=== PATIENT | female | born 1990 | race Two or more races ===

== ENCOUNTER 2024-05-07 09:55 | Emergency (ER) | payer MEDICAID, SELFPAY ==
[2024-05-07 10:40] VITALS: BP 150/93; PULSE 103; RESP 18; TEMP 36.6; O2SAT 99; BMI 33.7
--- NOTE | 2024-05-07 10:53 | PD.EDRME ---
Rapid Medical Screening Exam RME Arrival date/time: 05/07/24 09:55 This is a 34-year-old female presents to the emergency department with complaints of acute headache, generalized body aches. Reports uncontrolled diabetes at this time, + nausea vomiting. I have greeted and performed a focused initial assessment of this patient. Initial appropriate labs ordered at this time. A comprehensive ED assessment and evaluation of the patient and analysis of all test and completion of medical decision making process will be conducted by additional ED provider. Chief Complaint: Headache Time Seen by Provider: 05/07/24 10:13 Vital signs: Vital Signs Temperature 97.9 F 05/07/24 10:40 Pulse Rate 103 H 05/07/24 10:40 Respiratory Rate 18 05/07/24 10:40 Blood Pressure 150/93 H 05/07/24 10:40 Pulse Oximetry (%) 99 05/07/24 10:40 Oxygen Delivery Method Room Air 05/07/24 10:40
[2024-05-07] MEDS: ONDANSETRON ODT 4 MG TABRAP PO (11:13)
[2024-05-07 11:25] LABS: Collection Type, Urine Clean Catch
[2024-05-07 11:29] LABS: Basophils % (Auto) 0 % (0-2.5); Eosinophils # (Auto) 0.1 Thou/mm3 (0.0-0.5); Eosinophils % (Auto) 1 % (0-10); Hematocrit 43.6 % (36.0-46.0); Hemoglobin 15.9 g/dL (12.0-16.0); Immature Granulocytes % (Auto) 1 % (0-0); Immature Granulocytes Auto 0.05 Thou/mm3 (0.00-0.00); Lymphocytes % (Auto) 19 % (10-50); Mean Corpuscular HGB Conc 36.5 g/dl (31.0-37.0); Mean Corpuscular Hemoglobin 30.1 pg (25.0-35.0); Mean Corpuscular Volume 82 fL (80-100); Monocytes # (Auto) 0.4 Thou/mm3 (0.0-0.8); Monocytes % (Auto) 4 % (0-12); Neutrophils # (Auto) 7.8 Thou/mm3 (1.8-7.7); Neutrophils % (Auto) 75 % (37-80); Nucleated Red Blood Cell % 0 /100 WBC (0); Platelet Count 336 Thou/mm3 (140-440); RDW Standard Deviation 34.3 fL (36.4-46.3); Red Blood Count 5.29 Miln/mm3 (4.00-5.20); White Blood Count 10.4 Thou/mm3 (3.6-11.0)
[2024-05-07 11:38] LABS: Bacteria,Urine Rare; Bilirubin,Urine Negative (Negative); Blood,Urine Negative (Negative); Clarity,Urine Clear (Clear/Hazy); Color,Urine Lt-Yellow (Lt Yel-Yel); Glucose, Urine 4+ (Negative); HCG Qualitative,Urine Negative; Ketones,Urine Negative (Negative); Leukocyte Esterase,Urine Positive (Negative); Nitrite,Urine Positive (Negative); Protein,Urine Negative (Neg - Trace); RBC,Urine 2 /hpf (0-3); Specific Gravity,Urine 1.026 (1.001-1.035); Squamous Epithelial Cell,Urine 2 /hpf (0-5); Urobilinogen,Urine Negative mg/dL (0.0-1.0); WBC,Urine 11 /hpf (0-5)
[2024-05-07 11:42] LABS: Glucose Estimated Average 355 mg/dL (80-131); Hemoglobin A1C > 14.0 % Hgb (4.8-6.0)
[2024-05-07 11:51] LABS: Alanine Aminotransferase 22 U/L (10-49); Albumin, Serum 4.5 gm/dL (3.5-5.0); Albumin/Globulin Ratio 1.7 (1.2-2.2); Alkaline Phosphatase 79 U/L (46-116); Anion Gap 9 (7-16); Aspartate Amino Transferase 13 U/L (0-34); BUN/Creatinine Ratio 13 Ratio (12-20); Bilirubin,Total 0.5 mg/dL (0.3-1.2); Blood Urea Nitrogen 10 mg/dL (9-23); Calcium 9.7 mg/dL (8.3-10.6); Calcium (Corrected) 9.7 mg/dL (8.5-10.1); Carbon Dioxide 23.2 mMol/L (20.0-31.0); Chloride 103 mMol/L (98-107); Creatinine (Component) 0.8 mg/dL (0.6-1.3); Estimated Creatinine Clearance 128.5 mL/min (>60); Globulin 2.6 gm/dL (2.3-3.5); Glucose 277 mg/dL (74-106); Lipase 42 U/L (12-53); Osmolality,Calculated 279 (275-295); Potassium 4.5 mMol/L (3.4-5.1); Sodium 135 mMol/L (136-145); Total Protein 7.1 gm/dL (5.7-8.2); eGFR > 60 See Note
[2024-05-07 14:11] VITALS: BP 140/90; PULSE 113; RESP 18; TEMP 36.8; O2SAT 98
--- NOTE | 2024-05-07 14:19 | PD.EDHA ---
ED Headache RME/HPI General Chief Complaint: Headache Stated Complaint: MIGRAINES, VOMITING Time Seen by Provider: 05/07/24 10:13 Arrival date/time: 05/07/24 09:55 RME / HPI RME / HPI Narrative: 34-year-old female presents to the emergency department with complaints of acute headache, generalized body aches. Reports uncontrolled diabetes at this time, + nausea vomiting. Severity of symptoms moderate. Patient denies any fever. Denies any other complaints. Denies any head trauma. No medication was taken prior to arrival. Related Data Home Medications ?Medication ?Instructions ?Recorded ?Confirmed dulaglutide 0.75 mg/0.5 mL 1 ea subcut QWEEK 08/17/21 08/20/21 subcutaneous pen injector (Trulicity) metformin 1,000 mg tablet 1,000 mg PO BID 08/17/21 08/20/21 atorvastatin 20 mg tablet 20 mg PO QPM 08/21/21 08/21/21 gabapentin 300 mg tablet 300 mg PO BID 08/21/21 08/21/21 insulin lispro 100 unit/mL 10 - 15 unit subcut TID 08/21/21 08/21/21 subcutaneous pen (Humalog KwikPen (U-100) Insulin) Previous Rx's ?Medication ?Instructions ?Recorded ibuprofen 800 mg tablet 800 mg PO TID PRN pain #30 tabs 01/23/23 tizanidine 4 mg capsule 4 mg PO BID PRN muscle spasticity 01/23/23 #14 caps ibuprofen 800 mg tablet 800 mg PO TID PRN pain #30 tabs 03/15/23 cephalexin 500 mg capsule 500 mg PO QID #28 caps 05/10/23 cephalexin 500 mg tablet 500 mg PO TID #21 tabs 05/11/23 cefuroxime axetil 500 mg tablet 500 mg PO BID #14 tabs 05/07/24 rizatriptan 10 mg disintegrating See Rx Instructions PO .COMPLEX 05/07/24 tablet (Maxalt-RV TECHNICIAN) PRN migraine headache #20 tabs Allergies Allergy/AdvReac Type Severity Reaction Status Date / Time No Known Allergies Allergy Verified 05/07/24 09:56 Review of Systems Review of Systems Narrative Review of Systems: Review of system reviewed and within normal limits except mentioned in HPI ED Exam Narrative Physical exam: VITAL SIGNS: Reviewed. GENERAL APPEARANCE: Alert and interactive, follows commands, no acute distress, HEAD AND FACE: Non-traumatic. ENT: PERRL, pink conjunctivitis, eyelid no trauma, Mucous membrane moist. NECK: Supple, nontender, no nuchal rigidity. CHEST: No tenderness, no crepitus, no paradoxical movement, no retractions. LUNGS: Clear, well ventilated, symmetric, no rales, no wheezing, no ronchi, no stridor, good breath sounds bilaterally. HEART: Regular rate, regular rhythm, no murmur, no gallops. ABDOMEN: Soft, positive bowel sounds, nondistended, no guarding, nontender, no rebound, no masses, RECTAL: Deferred. GENITAL: Deferred. NEUROLOGICAL: Gross motor function intact sensory function intact, Appropriate for age. MUSCULOSKELETAL: low back nontender, full range of motion. EXTREMITIES: Nontender, full range of motion. SKIN: Color pink, dry, no rash, no lacerations, no abrasions, no contusions. LYMPHATICS: Deferred. Course Quality Measures none Orders Category Date Time Status Bedside COVID-19 Antigen Test NOW Care 05/07/24 10:54 Completed Bedside Influenza A&B Antigen Test NOW Care 05/07/24 10:54 Completed CBC Stat Lab 05/07/24 11:01 Completed Comprehensive Metabolic Panel Stat Lab 05/07/24 11:01 Completed HCG Qualitative,Urine Stat Lab 05/07/24 11:13 Completed Hemoglobin A1C [Glycohemoglobin w (eAG)] Stat Lab 05/07/24 11:01 Completed Lipase Stat Lab 05/07/24 11:01 Completed Urinalysis Stat Lab 05/07/24 11:13 Completed Ketorolac Inj [Toradol Inj] Med 05/07/24 14:16 Discontinued 30 mg IM X1 ONE Ondansetron Odt [Zofran Odt] Med 05/07/24 10:58 Discontinued 4 mg PO X1 ONE Vital Signs Vital signs: Vital Signs Temperature 97.9 F 05/07/24 10:40 Pulse Rate 103 H 05/07/24 10:40 Respiratory Rate 18 05/07/24 10:40 Blood Pressure 150/93 H 05/07/24 10:40 Pulse Oximetry (%) 99 05/07/24 10:40 Oxygen Delivery Method Room Air 05/07/24 10:40 Headache MDM Narrative MDM Narrative:: 34-year-old female presents to the emergency department with complaints of acute headache, generalized body aches. Reports uncontrolled diabetes at this time, + nausea vomiting. Severity of symptoms moderate. Patient denies any fever. Denies any other complaints. Denies any head trauma. No medication was taken prior to arrival. Patient's workup is significant for UTI. The rest of the labs unremarkable. Except for a blood sugar of 277 with no sign of diabetic ketoacidosis. Patient was given Toradol IM with significant improvement headache. She will be sent home on antibiotic for UTI Patient appears nontoxic and hemodynamically stable. Patient discharged home and instructed to follow-up with primary care provider in 24 to 48 hours. Instructed to return to the emergency department immediately if worsening of symptoms Patient data External records reviewed:: None Clinical information provided by:: patient and family Social determinants that could affect healthcare access:: none Patient has the following chronic illnesses:: Diabetes mellitus How is presenting disease/condition affected by chronic disease/condition?: uneffected by Evaluation data The following diagnostics were reviewed and interpreted by me:: lab results Lab and/or radiology exams considered but not ordered:: None Interpretation Summary: See results in [facility] Medications / Prescriptions Medications or Prescriptions considered but not ordered:: None Medication administrations:: Medication Administration History Discontinued Medications Ketorolac Tromethamine (Ketorolac Inj 60 Mg/2 Ml Vial) 30 mg IM X1 ONE Stop: 05/07/24 14:17 Last Admin: 05/07/24 14:23 Dose: 30 mg Documented By: MARIELOS Ondansetron HCl (Ondansetron Odt 4 Mg Tabrap) 4 mg PO X1 ONE; Protocol Stop: 05/07/24 10:59 Last Admin: 05/07/24 11:13 Dose: 4 mg Documented By: EMILY Toradol and Zofran Consultations Consultation(s) initiated? (list below): No Diagnosis Differential diagnosis headache: migraine, headache and other ( Urinary tract infection) Most likely diagnosis given after review of the tests above:: Urinary tract infection, headache Admission Indicated Admission indicated?: not indicated Explain why admission is indicated or not indicated:: Stable Admission Request Was there a request for admission?: No Disposition Plan Disposition Plan: Discharge Discharge Attestation Discharge Attestation: The patient and all family members were given an opportunity to ask questions and understood the discharge instructions. Discharge instructions specifically effects, indications for sooner follow up or return to the emergency department, and the expected course of current diagnosis. Patient condition: Stable Discharge Plan Plan Patient Disposition: HOME (Self Care) Disposition Comment: stable Prescriptions/Referrals Prescriptions/Med Rec: New cefuroxime axetil 500 mg tablet 500 mg PO BID Qty: 14 0RF rizatriptan [Maxalt-RV TECHNICIAN] 10 mg tablet,disintegrating See Rx Instructions .ROUTE .COMPLEX PRN (Reason: migraine headache) Qty: 20 0RF Rx Instructions: take 1 tab at onset of headache; if no relief may repeat 1 tab after at least 2 hrs; max = 3 tabs/24 hr PRN; No Action metformin 1,000 mg Tablet 1,000 mg PO BID Trulicity 0.75 mg/0.5 mL pen injector 1 ea SUBCUT QWEEK Patient Comments: INJECT 1 PEN SUBCUTANEOUSLY ONCE A WEEK atorvastatin 20 mg Tablet 20 mg PO QPM insulin lispro [Humalog KwikPen Insulin] 100 unit/mL Insulin Pen 10 - 15 unit SUBCUT TID Rx Instructions: before meals gabapentin 300 mg Tablet 300 mg PO BID Rx Instructions: for 30 days cephalexin 500 mg capsule 500 mg PO QID Qty: 28 0RF tizanidine 4 mg capsule 4 mg PO BID PRN (Reason: muscle spasticity) Qty: 14 0RF ibuprofen 800 mg tablet 800 mg PO TID PRN (Reason: pain) Qty: 30 0RF ibuprofen 800 mg tablet 800 mg PO TID PRN (Reason: pain) Qty: 30 0RF cephalexin 500 mg tablet 500 mg PO TID Qty: 21 0RF Referrals: Sanket Lucero MD [Primary Care Provider] - In 1 week Problem List Clinical Impression: UTI (urinary tract infection), Headache Patient/Caregiver Discharge Instructions Education Materials: Understanding Urinary Tract ... Additional Instructions: Thank you for the opportunity for serving you today. You are stable for discharged . You are advised to: Follow-up with your PCP in 1 to 2 days Return to ED for worsening of symptoms Increase oral fluids Take medication as prescribed Print Language: Citizen Of [place] Stand Alone Forms: [facility] Award Info., Patient Portal Info Letter
[2024-05-07] MEDS: KETOROLAC INJ 60 MG/2 ML VIAL 30 MG IM (14:23)
== END 2024-05-07 14:27 | disposition home or self-care (01) ==
PROVIDERS: Nurse Practitioner Primary Care; Emergency Provider Emergency Medicine; PCP Family Medicine
DX: N39.0 Urinary tract infection, site not specified (principal); R51.9 Headache, unspecified
CPT/HCPCS: 36415; 80053; 81001; 81025; 83036; 83690; 85025; 87400; 87811; 96372; 99283; J1885; Q0162

== ENCOUNTER 2024-09-25 14:14 | Emergency (ER) | payer MEDICAID, SELFPAY ==
[2024-09-25 14:15] VITALS: BMI 32.8
[2024-09-25 14:33] VITALS: BP 127/80; PULSE 96; RESP 19; TEMP 37; O2SAT 95
--- NOTE | 2024-09-25 14:42 | PD.EDRME ---
Rapid Medical Screening Exam RME Arrival date/time: 09/25/24 14:14 34-year-old female presents to the Emergency Department today for complaints of nausea vomiting and diarrhea Chief Complaint: Abdominal Pain Vital signs: Vital Signs Temperature 98.6 F 09/25/24 14:33 Pulse Rate 96 09/25/24 14:33 Respiratory Rate 19 09/25/24 14:33 Blood Pressure 127/80 09/25/24 14:33 Pulse Oximetry (%) 95 09/25/24 14:33 Oxygen Delivery Method Room Air 09/25/24 14:33
--- NOTE | 2024-09-25 14:53 | XR_ITS ---
Examination: CT abdomen and pelvis without contrast. Coronal 3-D reconstructions. Sagittal 2-D reconstructions. Date and time of exam:September 25, 2024 1604 hours, comparison May 10, 2023 INDICATIONS: Abdominal pain nausea vomiting diarrhea beginning 3 days ago CTDI: vol (mGy): 50.3 DLP: (mGycm): 947 Technique: Axial images of the abdomen have been obtained, 3 mm slice thickness Intravenous contrast material has not been administered. Low dose protocols were performed. One or more of the following dose reduction techniques were used; automated exposure control, adjustment of the mA and/or KV according to patient size, use of iterative reconstruction technique. Findings: Diffuse fatty infiltration throughout the liver Absent gallbladder Spleen is not enlarged No pancreatic mass Normal adrenal glands Perinephric stranding. Moderate renal parenchymal scar formation. No renal or ureteral calculi, no hydronephrosis. No bowel obstruction Normal appendix No diverticulitis Anteverted uterus 3 cm left adnexal cyst Urinary bladder wall thickening up to 4 mm Advanced degenerative disc disease L4-L5 IMPRESSION: Moderate renal parenchymal scar formation Perinephric stranding. No renal or ureteral calculi, no hydronephrosis. Normal appendix 3 cm left adnexal cyst, consider pelvic sonography follow-up Cystitis pattern
[2024-09-25 15:22] LABS: Collection Type, Urine Clean Catch
[2024-09-25 15:25] LABS: Basophils # (Auto) 0.0 Thou/mm3 (0.0-0.2); Basophils % (Auto) 0 % (0-2.5); Eosinophils # (Auto) 0.1 Thou/mm3 (0.0-0.5); Eosinophils % (Auto) 1 % (0-10); Hematocrit 42.0 % (36.0-46.0); Hemoglobin 14.7 g/dL (12.0-16.0); Immature Granulocytes Auto 0.02 Thou/mm3 (0.00-0.00); Lymphocytes # (Auto) 2.3 Thou/mm3 (1.0-4.8); Lymphocytes % (Auto) 24 % (10-50); Mean Corpuscular HGB Conc 35.0 g/dl (31.0-37.0); Mean Corpuscular Hemoglobin 29.9 pg (25.0-35.0); Mean Corpuscular Volume 85 fL (80-100); Monocytes # (Auto) 0.4 Thou/mm3 (0.0-0.8); Monocytes % (Auto) 5 % (0-12); Neutrophils # (Auto) 6.4 Thou/mm3 (1.8-7.7); Neutrophils % (Auto) 69 % (37-80); Nucleated Red Blood Cell # 0.00 Thou/mm3 (0.00-0.00); Nucleated Red Blood Cell % 0 /100 WBC (0); Platelet Count 267 Thou/mm3 (140-440); RDW Standard Deviation 34.8 fL (36.4-46.3); Red Blood Count 4.92 Miln/mm3 (4.00-5.20); White Blood Count 9.2 Thou/mm3 (3.6-11.0)
[2024-09-25 15:31] LABS: Beta Hydroxybutyrate 0.2 mmol/L (<0.6)
[2024-09-25 15:42] LABS: Glucose Estimated Average 355 mg/dL (80-131); Hemoglobin A1C > 14.0 % Hgb (4.8-6.0)
[2024-09-25 15:46] LABS: Alanine Aminotransferase 30 U/L (10-49); Albumin, Serum 3.9 gm/dL (3.5-5.0); Albumin/Globulin Ratio 1.6 (1.2-2.2); Alkaline Phosphatase 73 U/L (46-116); Anion Gap 12 (7-16); Aspartate Amino Transferase 29 U/L (0-34); BUN/Creatinine Ratio 8 Ratio (12-20); Bilirubin,Total 0.3 mg/dL (0.3-1.2); Blood Urea Nitrogen 7 mg/dL (9-23); Calcium 9.1 mg/dL (8.3-10.6); Calcium (Corrected) 9.2 mg/dL (8.5-10.1); Carbon Dioxide 22.5 mMol/L (20.0-31.0); Chloride 107 mMol/L (98-107); Creatinine (Component) 0.9 mg/dL (0.6-1.3); Estimated Creatinine Clearance 116.1 mL/min (>60); Globulin 2.4 gm/dL (2.3-3.5); Glucose 207 mg/dL (74-106); Lipase 32 U/L (12-53); Magnesium 1.4 mg/dL (1.6-2.6); Osmolality,Calculated 285 (275-295); Potassium 3.9 mMol/L (3.4-5.1); Sodium 141 mMol/L (136-145); Total Protein 6.3 gm/dL (5.7-8.2); eGFR > 60 See Note
[2024-09-25 15:53] LABS: Bacteria,Urine 3+; Bilirubin,Urine Negative (Negative); Blood,Urine Trace (Negative); Clarity,Urine Turbid (Clear/Hazy); Color,Urine Lt-Yellow (Lt Yel-Yel); Glucose, Urine 4+ (Negative); Ketones,Urine Negative (Negative); Leukocyte Esterase,Urine Positive (Negative); Nitrite,Urine Negative (Negative); PH,Urine 6.0 (5.0-7.0); Protein,Urine Trace (Neg - Trace); RBC,Urine 3 /hpf (0-3); Specific Gravity,Urine 1.028 (1.001-1.035); Squamous Epithelial Cell,Urine 2 /hpf (0-5); Urobilinogen,Urine Negative mg/dL (0.0-1.0); WBC,Urine 14 /hpf (0-5)
[2024-09-25 15:55] LABS: Culture Indicated,Urine Yes; HCG Qualitative,Urine Negative
[2024-09-25 18:21] VITALS: BP 127/84; PULSE 95; RESP 18; TEMP 36.8; O2SAT 98
--- NOTE | 2024-09-25 18:40 | PD.EDABDPN ---
ED Abdominal Pain RME/HPI General Chief Complaint: Abdominal Pain Stated complaint: CHILLS, N/V/D, ABD PAIN Time seen by provider: 09/25/24 18:08 Arrival date/time: 09/25/24 14:14 RME / HPI RME / HPI narrative: 34-year-old female patient with significant history of diabetes mellitus, came in for evaluation regarding left-sided abdominal pain. This been ongoing for the last 4 days associated with nausea vomiting diarrhea chills headache not feeling well, severity moderate. Patient denies any cough. Patient denies any dysuria denies any fever denies any other complaints no medications taken prior travel. Related Data Home Medications ?Medication ?Instructions ?Recorded ?Confirmed dulaglutide 0.75 mg/0.5 mL 1 ea subcut QWEEK 08/17/21 08/20/21 subcutaneous pen injector (Trulicity) metformin 1,000 mg tablet 1,000 mg PO BID 08/17/21 08/20/21 atorvastatin 20 mg tablet 20 mg PO QPM 08/21/21 08/21/21 gabapentin 300 mg tablet 300 mg PO BID 08/21/21 08/21/21 insulin lispro 100 unit/mL 10 - 15 unit subcut TID 08/21/21 08/21/21 subcutaneous pen (Humalog KwikPen (U-100) Insulin) Previous Rx's ?Medication ?Instructions ?Recorded ibuprofen 800 mg tablet 800 mg PO TID PRN pain #30 tabs 01/23/23 tizanidine 4 mg capsule 4 mg PO BID PRN muscle spasticity 01/23/23 #14 caps ibuprofen 800 mg tablet 800 mg PO TID PRN pain #30 tabs 03/15/23 cephalexin 500 mg capsule 500 mg PO QID #28 caps 05/10/23 cephalexin 500 mg tablet 500 mg PO TID #21 tabs 05/11/23 cefuroxime axetil 500 mg tablet 500 mg PO BID #14 tabs 05/07/24 rizatriptan 10 mg disintegrating See Rx Instructions PO .COMPLEX 05/07/24 tablet (Maxalt-LAN SUPPORT SPECIALIST) PRN migraine headache #20 tabs cefuroxime axetil 500 mg tablet 500 mg PO BID #14 tabs 09/25/24 ibuprofen 800 mg tablet 800 mg PO Q8H PRN pain #20 tabs 09/25/24 ondansetron HCl 4 mg tablet 4 mg PO Q8H PRN nausea and 09/25/24 vomiting 5 days #20 tabs oseltamivir 75 mg capsule (Tamiflu) 75 mg PO BID 5 days #10 caps 09/25/24 Allergies Allergy/AdvReac Type Severity Reaction Status Date / Time No Known Allergies Allergy Verified 09/25/24 14:15 Review of Systems Review of Systems Narrative Review of Systems: Review of system reviewed and within normal limits except mentioned in HPI ED Exam Narrative Physical exam: VITAL SIGNS: Reviewed. GENERAL APPEARANCE: Alert and interactive, follows commands, no acute distress, HEAD AND FACE: Non-traumatic. ENT: PERRL, pink conjunctivitis, eyelid no trauma, Mucous membrane moist. NECK: Supple, nontender, no nuchal rigidity. CHEST: No tenderness, no crepitus, no paradoxical movement, no retractions. LUNGS: Clear, well ventilated, symmetric, no rales, no wheezing, no ronchi, no stridor, good breath sounds bilaterally. HEART: Regular rate, regular rhythm, no murmur, no gallops. ABDOMEN: Soft, positive bowel sounds, nondistended, no guarding, left abdominal tenderness, no rebound, no masses, RECTAL: Deferred. GENITAL: Deferred. NEUROLOGICAL: Gross motor function intact sensory function intact, Appropriate for age. MUSCULOSKELETAL: low back nontender, full range of motion. EXTREMITIES: Nontender, full range of motion. SKIN: Color pink, dry, no rash, no lacerations, no abrasions, no contusions. LYMPHATICS: Deferred. Course Quality Measures none Orders Category Date Time Status Bedside COVID-19 Antigen Test NOW Care 09/25/24 14:42 Active Bedside Influenza A&B Antigen Test NOW Care 09/25/24 14:[address] abdomen pelvis wo con Stat Exams 09/25/24 14:53 Completed A1C [Glycohemoglobin w (eAG)] Stat Lab 09/25/24 15:07 Completed Beta Hydroxybutyrate Stat Lab 09/25/24 15:20 Completed CBC Stat Lab 09/25/24 15:07 Completed Comprehensive Metabolic Panel Stat Lab 09/25/24 15:07 Completed HCG Qualitative,Urine Stat Lab 09/25/24 15:10 Completed Lipase Stat Lab 09/25/24 15:07 Completed Mag [Magnesium] Stat Lab 09/25/24 15:07 Completed UA, C/S IF [Urinalysis, C/S if Indicated] Stat Lab 09/25/24 15:10 Completed Urine Culture Stat Lab 09/25/24 15:10 Received VBG [Venous Blood Gas] Stat Lab 09/25/24 15:07 Ordered Acetaminophen Tab [Tylenol ES Tab] Med 09/25/24 18:39 Once 1,000 mg PO X1 ONE Ibuprofen Tab [Motrin Tab] Med 09/25/24 18:39 Once 800 mg PO X1 ONE Ondansetron Odt [Zofran Odt] Med 09/25/24 18:39 Once 4 mg PO X1 ONE Oseltamivir [Tamiflu] Med 09/25/24 18:39 Once 75 mg PO X1 ONE cephALEXin [Keflex] Med 09/25/24 18:39 Once 500 mg PO X1 ONE Vital Signs Vital signs: Vital Signs Temperature 98.6 F 09/25/24 14:33 Pulse Rate 96 09/25/24 14:33 Respiratory Rate 19 09/25/24 14:33 Blood Pressure 127/80 09/25/24 14:33 Pulse Oximetry (%) 95 09/25/24 14:33 Oxygen Delivery Method Room Air 09/25/24 14:33 Abdominal Pain MDM MDM Narrative MDM Narrative:: 34-year-old female patient with significant history of diabetes mellitus, came in for evaluation regarding left-sided abdominal pain. This been ongoing for the last 4 days associated with nausea vomiting diarrhea chills headache not feeling well, severity moderate. Patient denies any cough. Patient denies any dysuria denies any fever denies any other complaints no medications taken prior travel. Patient tested positive for influenza, urinalysis positive for UTI, duress of the labs unremarkable except for blood sugar of [address] scan of the abdomen and pelvis showed Moderate renal parenchymal scar formation Perinephric stranding. No renal or ureteral calculi, no hydronephrosis. Normal appendix 3 cm left adnexal cyst, consider pelvic sonography follow-up Cystitis pattern Patient was given Tamiflu, Keflex, Motrin Tylenol and Zofran with significant improvement of symptoms. Patient data External records reviewed:: None Clinical information provided by:: patient Social determinants that could affect healthcare access:: none Patient has the following chronic illnesses:: Diabetes mellitus How is presenting disease/condition affected by chronic disease/condition?: caused by Evaluation data The following diagnostics were reviewed and interpreted by me:: lab results and radiology exam(s) Lab and/or radiology exams considered but not ordered:: None Interpretation Summary: See results MDM Medications / Prescriptions Medications or Prescriptions considered but not ordered:: None Medication administrations:: Keflex, Motrin Tylenol Zofran and Tamiflu Consultations Consultation(s) initiated? (list below): No Diagnosis Differential diagnosis abdominal pain: abdominal pain and other (UTI, influenza) Most likely diagnosis given after review of the tests above:: Influenza, UTI, abdominal pain Admission Indicated Admission indicated?: not indicated Admission Request Was there a request for admission?: No Disposition Plan Disposition Plan: Discharge Discharge Attestation Discharge Attestation: The patient and all family members were given an opportunity to ask questions and understood the discharge instructions. Discharge instructions specifically effects, indications for sooner follow up or return to the emergency department, and the expected course of current diagnosis. Patient condition: Stable Discharge Plan Plan Patient Disposition: HOME (Self Care) Discharge Disposition comment: Stable Prescriptions/Referrals Prescriptions/Med Rec: New cefuroxime axetil 500 mg tablet 500 mg PO BID Qty: 14 0RF oseltamivir [Tamiflu] 75 mg capsule 75 mg PO BID 5 Days Qty: 10 0RF ondansetron HCl 4 mg tablet 4 mg PO Q8H PRN (Reason: nausea and vomiting) 5 Days Qty: 20 0RF ibuprofen 800 mg tablet 800 mg PO Q8H PRN (Reason: pain) Qty: 20 0RF No Action metformin 1,000 mg Tablet 1,000 mg PO BID Trulicity 0.75 mg/0.5 mL pen injector 1 ea SUBCUT QWEEK Patient Comments: INJECT 1 PEN SUBCUTANEOUSLY ONCE A WEEK atorvastatin 20 mg Tablet 20 mg PO QPM insulin lispro [Humalog KwikPen Insulin] 100 unit/mL Insulin Pen 10 - 15 unit SUBCUT TID Rx Instructions: before meals gabapentin 300 mg Tablet 300 mg PO BID Rx Instructions: for 30 days cephalexin 500 mg capsule 500 mg PO QID Qty: 28 0RF cefuroxime axetil 500 mg tablet 500 mg PO BID Qty: 14 0RF rizatriptan [Maxalt-LAN SUPPORT SPECIALIST] 10 mg tablet,disintegrating See Rx Instructions .ROUTE .COMPLEX PRN (Reason: migraine headache) Qty: 20 0RF Rx Instructions: take 1 tab at onset of headache; if no relief may repeat 1 tab after at least 2 hrs; max = 3 tabs/24 hr PRN; tizanidine 4 mg capsule 4 mg PO BID PRN (Reason: muscle spasticity) Qty: 14 0RF ibuprofen 800 mg tablet 800 mg PO TID PRN (Reason: pain) Qty: 30 0RF ibuprofen 800 mg tablet 800 mg PO TID PRN (Reason: pain) Qty: 30 0RF cephalexin 500 mg tablet 500 mg PO TID Qty: 21 0RF Referrals: Sanket Lucero MD [Primary Care Provider] - In 1 week Problem List Clinical Impression: UTI (urinary tract infection), Influenza, Ovarian cyst Patient/Caregiver Discharge Instructions Discharge Activity: activity as tolerated Education Materials: ED Influenza (Adult) Additional Instructions: Thank you for the opportunity for serving you today. You are stable for discharged . You are advised to: Follow-up with your PCP in 1 to 2 days Return to ED for worsening of symptoms Increase oral fluids Take medication as prescribed Print Language: [place] Stand Alone Forms: Marisa Award Info., Patient Portal Info Letter
[2024-09-25] MEDS: ONDANSETRON ODT 4 MG TABRAP PO (18:50)
[2024-09-25] MEDS: OSELTAMIVIR 75 MG CAPSULE PO (18:59)
[2024-09-25] MEDS: IBUPROFEN TAB 400 MG TABLET 800 MG PO (19:00)
[2024-09-25] MEDS: ACETAMINOPHEN 500 MG TABLET 1000 MG PO (19:01)
== END 2024-09-25 19:06 | disposition home or self-care (01) ==
PROVIDERS: Nurse Practitioner Primary Care; Emergency Provider Emergency Medicine; PCP Family Medicine
DX: N39.0 Urinary tract infection, site not specified (principal); J11.1 Influenza due to unidentified influenza virus with other respiratory manifestations; N83.202 Unspecified ovarian cyst, left side; E11.9 Type 2 diabetes mellitus without complications; Z79.84 Long term (current) use of oral hypoglycemic drugs; Z79.85 Long-term (current) use of injectable non-insulin antidiabetic drugs; Z79.4 Long term (current) use of insulin
CPT/HCPCS: 36415; 74176; 80053; 81001; 81025; 82010; 82803; 83036; 83690; 83735; 85025; 87077; 87086; 87186; 87400; 87811; 99283; Q0162; A9270

== ENCOUNTER 2024-12-04 17:56 | Emergency (ER) | payer MEDICAID, SELFPAY ==
[2024-12-04 17:58] VITALS: BMI 32.8
[2024-12-04 18:08] VITALS: BP 133/85; PULSE 102; RESP 18; TEMP 37.2; O2SAT 98
--- NOTE | 2024-12-04 18:22 | PD.EDANKLE ---
Lower Extremity Injury RME/HPI General Chief Complaint: General Adult/Misc Complain Stated Complaint: PULLED OFF L BIG TOE X3 DAYS AGO Time Seen by Provider: 12/04/24 18:30 Arrival date/time: 12/04/24 17:56 RME / HPI RME / HPI Narrative: See [facility] for Dr. Florence's HPI Documentation. Related Data Home Medications ?Medication ?Instructions ?Recorded ?Confirmed dulaglutide 0.75 mg/0.5 mL 1 ea subcut QWEEK 08/17/21 08/20/21 subcutaneous pen injector (Trulicity) metformin 1,000 mg tablet 1,000 mg PO BID 08/17/21 08/20/21 atorvastatin 20 mg tablet 20 mg PO QPM 08/21/21 08/21/21 gabapentin 300 mg tablet 300 mg PO BID 08/21/21 08/21/21 insulin lispro 100 unit/mL 10 - 15 unit subcut TID 08/21/21 08/21/21 subcutaneous pen (Humalog KwikPen (U-100) Insulin) Previous Rx's ?Medication ?Instructions ?Recorded ibuprofen 800 mg tablet 800 mg PO TID PRN pain #30 tabs 01/23/23 tizanidine 4 mg capsule 4 mg PO BID PRN muscle spasticity 01/23/23 #14 caps ibuprofen 800 mg tablet 800 mg PO TID PRN pain #30 tabs 03/15/23 cephalexin 500 mg capsule 500 mg PO QID #28 caps 05/10/23 cephalexin 500 mg tablet 500 mg PO TID #21 tabs 05/11/23 cefuroxime axetil 500 mg tablet 500 mg PO BID #14 tabs 05/07/24 rizatriptan 10 mg disintegrating See Rx Instructions PO .COMPLEX 05/07/24 tablet (Maxalt-[employer]) PRN migraine headache #20 tabs cefuroxime axetil 500 mg tablet 500 mg PO BID #14 tabs 09/25/24 ibuprofen 800 mg tablet 800 mg PO Q8H PRN pain #20 tabs 09/25/24 acetaminophen 300 mg-codeine 30 mg 2 tab PO Q8H PRN pain #20 tabs 12/04/24 tablet amoxicillin 875 mg-potassium 1 tab PO BID #20 tabs 12/04/24 clavulanate 125 mg tablet ibuprofen 800 mg tablet 800 mg PO Q8H PRN pain #30 tabs 12/04/24 lidocaine 5 % topical patch 1 patch topical QDAY PRN pain #30 12/04/24 (Lidoderm) ea Allergies Allergy/AdvReac Type Severity Reaction Status Date / Time No Known Allergies Allergy Verified 12/04/24 18:01 Review of Systems Review of Systems Systems Reviewed: All systems reviewed, normal except as documented Past Medical History Past Medical History CARDIAC: Positive Hypercholesterolemia GASTROINTESTINAL: Positive Gall Bladder Disease REPRODUCTIVE: Positive Previous Pregnancies ENDOCRINE: Positive Diabetes Mellitus Type 2 Surgical History SURGICAL: Positive Abdominal Surgery and Section ED Exam Narrative Physical exam: See [facility] for Dr. Florence's Physical Exam Documentation. Course Quality Measures none Orders Category Date Time Status Wound Care [Wound Care] NOW Care 12/04/24 18:42 Active ACETAMINOPHEN w/COD 300-30 [Tylenol w/Cod #3] Med 12/04/24 18:41 Discontinued 2 tab PO X1 ONE Amoxicillin/Pot Clav 875 [Augmentin 875] Med 12/04/24 18:41 Discontinued 1 tab PO X1 ONE Ibuprofen Tab [Motrin Tab] Med 12/04/24 18:41 Discontinued 800 mg PO X1 ONE Vital Signs Vital signs: Vital Signs Temperature 99.0 F 12/04/24 18:08 Pulse Rate 102 H 12/04/24 18:08 Respiratory Rate 18 12/04/24 18:08 Blood Pressure 133/85 H 12/04/24 18:08 Pulse Oximetry (%) 98 12/04/24 18:08 Oxygen Delivery Method Room Air 12/04/24 18:08 Extremity Injury, Lower [facility] Narrative [facility] Narrative:: This section includes all my notes and documentations, including HPI, PE, and ED course. Kameron Florence MD HPI: 34 y/o female with Hx of Type II DM presents with severe pain, redness, and swelling of the left greater toe. Several days ago, she remove the nail herself thinking she had ingrown nails. No fever or chills or malaise. No other complaints. ROS: All negative except as documented in HPI. Physical Exam: General: Alert and oriented. Eyes: Conjunctivae and lids clear. ENT: No nasal congestion. Neck: Supple. Lungs: No respiratory distress. Skin: Warm and dry. Neuro: Alert and oriented X 3. Left Great Toe: Complete nail avulsion noted. Entire toe is remarkable for erythema/edema/calor/tenderness. At this point, diagnoses include: Cellulitis of great toe of left foot Treatment here included: Two Tylenol #3 Augmentin 875 Motrin 800 mg She started to feel better. Recommended outpatient care. Based on my best medical judgment, made decision no further evaluation or treatment indicated at this time. Patient understands and agrees to the discharge instructions customized and printed, see below. Discharge instructions from Dr. Florence:? -- Take Augmentin to kill the germs causing your infection. -- Keep the current dressing intact for 48 hours. -- After 48 hours, change the dressing once daily. -- First remove the dressing gently.? If it does not come off easily, run water through it until it comes off easily. -- Then gently wash with soap and water. -- After completely drying, apply antibiotic ointment and petroleum jelly and new dressing. -- To help the healing process, minimal weightbearing and elevate above the waist for 3 days. -- Ibuprofen 800 mg every 6-8 hours today and tomorrow to decrease inflammation then as needed. Tylenol with codeine for severe pain. You can apply small piece of lidocaine patch for more help with the pain. -- See a private doctor on 12/06/2024 for recheck. Ask for help until you are completely better. -- Seek immediate medical care with fever, spreading redness despite taking Augmentin for 24 hours, or with any concerns. Kameron Florence MD Patient data External records reviewed:: [facility] previous records (Reviewed prior ED records from 09/25/24. Patient was seen for Influenza.) Clinical information provided by:: patient Social determinants that could affect healthcare access:: none Patient has the following chronic illnesses:: Type II DM, Hypercholesterolemia, Gall Bladder Disease How is presenting disease/condition affected by chronic disease/condition?: exacerbated by Evaluation data The following diagnostics were reviewed and interpreted by me:: other (specify) (N/A) Lab and/or radiology exams considered but not ordered:: None Interpretation Summary: N/A Medications / Prescriptions Medications or Prescriptions considered but not ordered:: None Medication administrations:: Medication Administration History Discontinued Medications Acetaminophen/Codeine Phosphate (Acetaminophen W/Cod 300-30 Tablet) 2 tab PO X1 ONE Stop: 12/04/24 18:42 Last Admin: 12/04/24 18:58 Dose: 2 tab Documented By: OA Amoxicillin/Clavulanate Potassium (Amoxicillin/Pot Clav 875 Tablet) 1 tab PO X1 ONE Stop: 12/04/24 18:42 Last Admin: 12/04/24 18:58 Dose: 1 tab Documented By: OA Ibuprofen (Ibuprofen Tab 400 Mg Tablet) 800 mg PO X1 ONE Stop: 12/04/24 18:42 Last Admin: 12/04/24 18:58 Dose: 800 mg Documented By: OA Treatment here included: Two Tylenol #3 Augmentin 875 Motrin 800 mg Consultations Consultation(s) initiated? (list below): No Diagnosis Extremity Injury, Lower Differential Diagnosis: other (Ingrown toenail, Paronychia, Cellulitis) Most likely diagnosis given after review of the tests above:: Cellulitis of great toe of left foot Admission Indicated Admission indicated?: not indicated Explain why admission is indicated or not indicated:: With significant improvement and no condition needing emergent intervention, there was no indication for admission. Admission Request Was there a request for admission?: No Disposition Plan Disposition Plan: Discharge Discharge Attestation Discharge Attestation: The patient and all family members were given an opportunity to ask questions and understood the discharge instructions. Discharge instructions specifically effects, indications for sooner follow up or return to the emergency department, and the expected course of current diagnosis. Patient condition: Stable Discharge Plan Plan Patient Disposition: HOME (Self Care) Prescriptions/Referrals Prescriptions/Med Rec: New ibuprofen 800 mg tablet 800 mg PO Q8H PRN (Reason: pain) Qty: 30 0RF acetaminophen-codeine 300-30 mg tablet 2 tab PO Q8H MDD 6 PRN (Reason: pain) Qty: 20 0RF lidocaine [Lidoderm] 5 % adhesive patch,medicated 1 patch topical QDAY PRN (Reason: pain) Qty: 30 0RF Rx Instructions: leave on most painful area for up to 12 hrs amoxicillin-pot clavulanate 875-125 mg tablet 1 tab PO BID Qty: 20 0RF No Action metformin 1,000 mg Tablet 1,000 mg PO BID Trulicity 0.75 mg/0.5 mL pen injector 1 ea SUBCUT QWEEK Patient Comments: INJECT 1 PEN SUBCUTANEOUSLY ONCE A WEEK atorvastatin 20 mg Tablet 20 mg PO QPM insulin lispro [Humalog KwikPen Insulin] 100 unit/mL Insulin Pen 10 - 15 unit SUBCUT TID Rx Instructions: before meals gabapentin 300 mg Tablet 300 mg PO BID Rx Instructions: for 30 days cephalexin 500 mg capsule 500 mg PO QID Qty: 28 0RF cefuroxime axetil 500 mg tablet 500 mg PO BID Qty: 14 0RF rizatriptan [Maxalt-[employer]] 10 mg tablet,disintegrating See Rx Instructions .ROUTE .COMPLEX PRN (Reason: migraine headache) Qty: 20 0RF Rx Instructions: take 1 tab at onset of headache; if no relief may repeat 1 tab after at least 2 hrs; max = 3 tabs/24 hr PRN; tizanidine 4 mg capsule 4 mg PO BID PRN (Reason: muscle spasticity) Qty: 14 0RF ibuprofen 800 mg tablet 800 mg PO TID PRN (Reason: pain) Qty: 30 0RF ibuprofen 800 mg tablet 800 mg PO TID PRN (Reason: pain) Qty: 30 0RF cephalexin 500 mg tablet 500 mg PO TID Qty: 21 0RF cefuroxime axetil 500 mg tablet 500 mg PO BID Qty: 14 0RF ibuprofen 800 mg tablet 800 mg PO Q8H PRN (Reason: pain) Qty: 20 0RF Problem List Clinical Impression: Cellulitis of great toe of left foot Patient/Caregiver Discharge Instructions Discharge Activity: activity as tolerated Education Materials: ED Cellulitis Additional Instructions: Discharge instructions from Dr. Florence:? -- Take Augmentin to kill the germs causing your infection. -- Keep the current dressing intact for 48 hours. -- After 48 hours, change the dressing once daily. -- First remove the dressing gently.? If it does not come off easily, run water through it until it comes off easily. -- Then gently wash with soap and water. -- After completely drying, apply antibiotic ointment and petroleum jelly and new dressing. -- To help the healing process, minimal weightbearing and elevate above the waist for 3 days. -- Ibuprofen 800 mg every 6-8 hours today and tomorrow to decrease inflammation then as needed. Tylenol with codeine for severe pain. You can apply small piece of lidocaine patch for more help with the pain. -- See a private doctor on 12/06/2024 for recheck. Ask for help until you are completely better. -- Seek immediate medical care with fever, spreading redness despite taking Augmentin for 24 hours, or with any concerns. Print Language: Belarusian Stand Alone Forms: [facility] Award Info., Patient Portal Info Letter
[2024-12-04] MEDS: AMOXICILLIN/POT CLAV 875 TABLET 1 TAB PO (18:58)
[2024-12-04] MEDS: ACETAMINOPHEN w/COD 300-30 TABLET 2 TAB PO (18:58)
[2024-12-04] MEDS: IBUPROFEN TAB 400 MG TABLET 800 MG PO (18:58)
[2024-12-04 19:33] VITALS: PULSE 78; O2SAT 99
== END 2024-12-04 19:33 | disposition home or self-care (01) ==
LOC: SERX 19:36
PROVIDERS: Emergency Provider Emergency Medicine; PCP Physician Assistant
DX: L03.032 Cellulitis of left toe (principal); E11.9 Type 2 diabetes mellitus without complications; Z79.4 Long term (current) use of insulin; Z79.84 Long term (current) use of oral hypoglycemic drugs
CPT/HCPCS: 99284; A9270

== ENCOUNTER 2025-02-07 08:10 | Emergency (ER) | payer MEDICAID, SELFPAY ==
[2025-02-07 08:23] VITALS: BP 159/82; PULSE 101; RESP 18; TEMP 36.5; O2SAT 98; BMI 33.5
--- NOTE | 2025-02-07 08:24 | XR_ITS ---
Examination: Abdomen sonogram, Limited Date and time of exam: February 07, 2025, 0900 hours INDICATIONS: Right upper abdominal pain vomiting and chills beginning 2 days ago Technique: Real-time nunez scale transabdominal sonographic images of the upper abdomen obtained. Findings: Absent gallbladder Common bile duct 0.4 cm Pancreatic head 2.3 cm Liver 19.1 cm fatty infiltration smooth contour Normal hepatopetal portal venous flow Patent IVC IMPRESSION: Absent gallbladder Normal common bile duct. Moderate hepatomegaly no focal liver lesions
--- NOTE | 2025-02-07 08:25 | PD.EDNV ---
Nausea/Vomit./Diarrhea-RME/HPI General Chief complaint: Nausea/Vomiting/Diarrhea Stated complaint: CHILLS, VOMITING, SKIN COLD Time Seen by Provider: 02/07/25 08:17 Source: patient Arrival date/time: 02/07/25 08:10 35-year-old female with a history of hyperlipidemia, type 2 diabetes, presents to the emergency room with a chief complaint of bodyaches, chills, vomiting, right upper quadrant abdominal tenderness x 3 days Mode of arrival: ambulatory Limitations: no limitations Related Data Home Medications ?Medication ?Instructions ?Recorded ?Confirmed dulaglutide 0.75 mg/0.5 mL 1 ea subcut QWEEK 08/17/21 08/20/21 subcutaneous pen injector (Trulicity) metformin 1,000 mg tablet 1,000 mg PO BID 08/17/21 08/20/21 atorvastatin 20 mg tablet 20 mg PO QPM 08/21/21 08/21/21 gabapentin 300 mg tablet 300 mg PO BID 08/21/21 08/21/21 insulin lispro 100 unit/mL 10 - 15 unit subcut TID 08/21/21 08/21/21 subcutaneous pen (Humalog KwikPen (U-100) Insulin) Previous Rx's ?Medication ?Instructions ?Recorded ibuprofen 800 mg tablet 800 mg PO TID PRN pain #30 tabs 01/23/23 tizanidine 4 mg capsule 4 mg PO BID PRN muscle spasticity 01/23/23 #14 caps ibuprofen 800 mg tablet 800 mg PO TID PRN pain #30 tabs 03/15/23 cephalexin 500 mg capsule 500 mg PO QID #28 caps 05/10/23 cephalexin 500 mg tablet 500 mg PO TID #21 tabs 05/11/23 cefuroxime axetil 500 mg tablet 500 mg PO BID #14 tabs 05/07/24 rizatriptan 10 mg disintegrating See Rx Instructions PO .COMPLEX 05/07/24 tablet (Maxalt-[employer]) PRN migraine headache #20 tabs cefuroxime axetil 500 mg tablet 500 mg PO BID #14 tabs 09/25/24 ibuprofen 800 mg tablet 800 mg PO Q8H PRN pain #20 tabs 09/25/24 acetaminophen 300 mg-codeine 30 mg 2 tab PO Q8H PRN pain #20 tabs 12/04/24 tablet amoxicillin 875 mg-potassium 1 tab PO BID #20 tabs 12/04/24 clavulanate 125 mg tablet ibuprofen 800 mg tablet 800 mg PO Q8H PRN pain #30 tabs 12/04/24 lidocaine 5 % topical patch 1 patch topical QDAY PRN pain #30 12/04/24 (Lidoderm) ea Allergies Allergy/AdvReac Type Severity Reaction Status Date / Time No Known Allergies Allergy Verified 02/07/25 08:13 Review of Systems Review of Systems Systems Reviewed: All systems reviewed, normal except as documented Constitutional Constitutional: Reports system reviewed and no additional complaints, except as documented, Denies fatigue, Denies fever(s), Denies headache(s) and Denies weakness Eyes Eyes: Reports system reviewed and no additional complaints, except as documented, Denies blurry vision and Denies change in vision ENT Ears, Nose, Mouth, and Throat: Reports system reviewed and no additional complaints, except as documented, Denies otalgia, Denies headache(s), Denies nasal congestion, Denies throat swelling and Denies vertigo Cardiovascular Cardiovascular: Reports system reviewed and no additional complaints, except as documented, Denies chest pain, Denies dyspnea and Denies dyspnea on exertion Respiratory Respiratory: Reports system reviewed and no additional complaints, except as documented, Denies chest congestion, Denies cough, Denies dyspnea, Denies dyspnea on exertion and Denies wheezing Gastrointestinal Gastrointestinal: Reports system reviewed and no additional complaints, except as documented, Reports abdominal pain, Reports cramping, Reports nausea and Reports vomiting Genitourinary Genitourinary: Reports system reviewed and no additional complaints, except as documented Musculoskeletal Musculoskeletal: Reports system reviewed and no additional complaints, except as documented and Denies back pain Integumentary/Breasts Skin/Breast: Reports system reviewed and no additional complaints, except as documented and Denies wounds Neurologic Neurologic: Reports system reviewed and no additional complaints, except as documented, Denies confusion, Denies headache(s), Denies lack of coordination, Denies vertigo and Denies weakness Psychiatric Psychiatric: Reports system reviewed and no additional complaints, except as documented, Denies anxiety, Denies confusion, Denies depression, Denies paranoia, Denies suicidal ideation and Denies tactile hallucinations Endocrine Endocrine: Reports system reviewed and no additional complaints, except as documented and Denies fatigue Hematologic/Lymphatic Hematologic/Lymphatic: Reports system reviewed and no additional complaints, except as documented and Denies lymphadenopathy Allergic/Immunologic Allergic/Immunologic: Reports system reviewed and no additional complaints, except as documented, Denies throat swelling, Denies urticaria and Denies wheezing Past Medical History Past Medical History NEUROLOGIC: Negative Neurological Disorders or Seizures CARDIAC: Positive Hypercholesterolemia; Negative Cardiac Disorders or Congestive Heart Failure RESPIRATORY: Negative Chronic Obstructive Pulmonary Disease (COPD) or Asthma GASTROINTESTINAL: Positive Gastrointestinal Disorders and Gall Bladder Disease; Negative Hepatitis GENITOURINARY: Negative Genitourinary Disorders or Renal Disease REPRODUCTIVE: Positive Previous Pregnancies; Negative Pelvic Inflammatory Disease MUSCULOSKELETAL: Negative Musculoskeletal Disorders ENDOCRINE: Positive Endocrine Disorders and Diabetes Mellitus Type 2; Negative Diabetes Mellitus Type 1 HEMATOLOGIC: Negative Blood Disorders or Sickle Cell Disease OTHER HISTORY: Negative Autoimmune Disease, Blood Transfusions, Blood Transfusion Reaction, Anesthesia Reactions, Organ Transplant, MRSA, VRSA, Vancomycin-Resistant Enterococci, Human Immunodeficiency Virus (HIV), Chicken Pox, Measles, Mumps, Rubella (Monegasque Measles), Pertussis, Clostridium Difficile or Cancer Family History FAMILY HISTORY: Positive Family Cardiac Disorders; Negative Family Psychiatric Problems, Family Respiratory Disorders, Family Gastrointestinal Problems, Family Cancer, Family Surgery or Family Anesthesia Reaction Surgical History SURGICAL: Positive Abdominal Surgery and Section; Negative Joint Replacement, Neurologic Surgery, Mastectomy or Organ Transplant Social History SMOKING STATUS: Never smoker SUBSTANCE USE: does not use ED Exam General Limitations: Present no limitations General appearance: Present alert and in no apparent distress Head Head exam: Present atraumatic Eye Eye exam: Present normal appearance, PERRL and EOMI ENT ENT exam: Present normal exam, normal oropharynx and mucous membranes moist Neck Neck exam: Present normal inspection, full ROM and trachea midline Chest Chest inspection: Present normal inspection and symmetric chest wall rise Respiratory Respiratory exam: Present normal lung sounds bilaterally Cardiovascular Cardiovascular exam: Present regular rate, normal rhythm and normal heart sounds Abdominal Exam Abdominal exam: Present soft, tenderness, normal bowel sounds and Pollard's sign Abdominal tenderness: Present RUQ, epigastrium and mild Extremities Exam Extremities exam: Present normal inspection and full ROM Back Exam Back exam: Present normal inspection and full ROM Neurological Exam Neurological exam: Present alert, oriented X3 and CN II-XII intact Psychiatric Psychiatric exam: Present normal affect and normal mood Skin Skin exam: Present warm, dry, intact and normal color Course Quality Measures none Orders Category Date Time Status Bedside COVID-19 Antigen Test NOW Care 02/07/25 08:25 Active Bedside Influenza A&B Antigen Test NOW Care 02/07/25 08:25 Active US gall bladder Stat Exams 02/07/25 08:24 Ordered CBC Stat Lab 02/07/25 08:24 Ordered CMP [Comprehensive Metabolic Panel] Stat Lab 02/07/25 08:24 Ordered HCG Qualitative,Urine Stat Lab 02/07/25 08:24 Ordered Lipase Stat Lab 02/07/25 08:24 Ordered UA [Urinalysis] Stat Lab 02/07/25 08:24 Ordered Urine Culture Stat Lab 02/07/25 08:24 Ordered HYDROcodone*/APAP 5/325 [[place] 5/325] Med 02/07/25 08:25 Once 1 tab PO X1 ONE Ondansetron Odt [Zofran Odt] Med 02/07/25 08:25 Once 4 mg PO X1 ONE Vital Signs Vital signs: Vital Signs Temperature 97.7 F 02/07/25 08:23 Pulse Rate 101 H 02/07/25 08:23 Respiratory Rate 18 02/07/25 08:23 Blood Pressure 159/82 H 02/07/25 08:23 Pulse Oximetry (%) 98 02/07/25 08:23 Oxygen Delivery Method Room Air 02/07/25 08:23 Nausea/Vomiting/Diarrhea MDM Narrative MDM Narrative:: 35-year-old female with a history of hyperlipidemia, type 2 diabetes, presents to the emergency room with a chief complaint of bodyaches, chills, vomiting, right upper quadrant abdominal tenderness x 3 days Patient data External records reviewed:: [facility] previous records Clinical information provided by:: patient Social determinants that could affect healthcare access:: none Patient has the following chronic illnesses:: Type 2 diabetes, hyperlipidemia How is presenting disease/condition affected by chronic disease/condition?: no chronic disease Evaluation data The following diagnostics were reviewed and interpreted by me:: lab results and radiology exam(s) Lab and/or radiology exams considered but not ordered:: Labs and radiology exams considered and ordered Interpretation Summary: Ultrasound gallbladder- Medications / Prescriptions Medications / Prescriptions considered but not ordered:: Medication given Medication administrations:: Medication Administration History Ondansetron HCl (Ondansetron Odt 4 Mg Tabrap) 4 mg PO X1 ONE; Protocol Stop: 02/07/25 08:26 Medication given Consultations Consultation(s) initiated? (list below): No Diagnosis Nausea Differential Diagnosis: food poisoning, gastroenteritis, dehydration and other (Cholelithiasis/cholecystitis) Admission Indicated Admission indicated?: not indicated Admission Request Was there a request for admission?: No Disposition Plan Disposition Plan: Discharge Discharge Attestation Discharge Attestation: The patient and all family members were given an opportunity to ask questions and understood the discharge instructions. Discharge instructions specifically effects, indications for sooner follow up or return to the emergency department, and the expected course of current diagnosis. Patient condition: Stable Discharge Plan Prescriptions/Referrals Prescriptions/Med Rec: No Action metformin 1,000 mg Tablet 1,000 mg PO BID Trulicity 0.75 mg/0.5 mL pen injector 1 ea SUBCUT QWEEK Patient Comments: INJECT 1 PEN SUBCUTANEOUSLY ONCE A WEEK atorvastatin 20 mg Tablet 20 mg PO QPM insulin lispro [Humalog KwikPen Insulin] 100 unit/mL Insulin Pen 10 - 15 unit SUBCUT TID Rx Instructions: before meals gabapentin 300 mg Tablet 300 mg PO BID Rx Instructions: for 30 days cephalexin 500 mg capsule 500 mg PO QID Qty: 28 0RF cefuroxime axetil 500 mg tablet 500 mg PO BID Qty: 14 0RF rizatriptan [Maxalt-[employer]] 10 mg tablet,disintegrating See Rx Instructions .ROUTE .COMPLEX PRN (Reason: migraine headache) Qty: 20 0RF Rx Instructions: take 1 tab at onset of headache; if no relief may repeat 1 tab after at least 2 hrs; max = 3 tabs/24 hr PRN; ibuprofen 800 mg tablet 800 mg PO Q8H PRN (Reason: pain) Qty: 30 0RF acetaminophen-codeine 300-30 mg tablet 2 tab PO Q8H MDD 6 PRN (Reason: pain) Qty: 20 0RF lidocaine [Lidoderm] 5 % adhesive patch,medicated 1 patch topical QDAY PRN (Reason: pain) Qty: 30 0RF Rx Instructions: leave on most painful area for up to 12 hrs amoxicillin-pot clavulanate 875-125 mg tablet 1 tab PO BID Qty: 20 0RF tizanidine 4 mg capsule 4 mg PO BID PRN (Reason: muscle spasticity) Qty: 14 0RF ibuprofen 800 mg tablet 800 mg PO TID PRN (Reason: pain) Qty: 30 0RF ibuprofen 800 mg tablet 800 mg PO TID PRN (Reason: pain) Qty: 30 0RF cephalexin 500 mg tablet 500 mg PO TID Qty: 21 0RF cefuroxime axetil 500 mg tablet 500 mg PO BID Qty: 14 0RF ibuprofen 800 mg tablet 800 mg PO Q8H PRN (Reason: pain) Qty: 20 0RF Patient/Caregiver Discharge Instructions Print Language: Bengali
[2025-02-07] MEDS: HYDROcodone/APAP 5/325 TABLET 1 TAB PO (08:42)
[2025-02-07] MEDS: ONDANSETRON ODT 4 MG TABRAP PO (08:42)
[2025-02-07 09:11] LABS: Collection Type, Urine Clean Catch
[2025-02-07 09:37] LABS: HCG Qualitative,Urine Negative
[2025-02-07 09:50] LABS: Bacteria,Urine 1+; Bilirubin,Urine Negative (Negative); Blood,Urine 2+ (Negative); Clarity,Urine Clear (Clear/Hazy); Color,Urine Lt-Yellow (Lt Yel-Yel); Glucose, Urine 4+ (Negative); Ketones,Urine 1+ (Negative); Leukocyte Esterase,Urine Positive (Negative); Nitrite,Urine Positive (Negative); PH,Urine 6.0 (5.0-7.0); Protein,Urine Trace (Neg - Trace); RBC,Urine 3 /hpf (0-3); Specific Gravity,Urine 1.038 (1.001-1.035); Squamous Epithelial Cell,Urine 3 /hpf (0-5); Urobilinogen,Urine Negative mg/dL (0.0-1.0); WBC,Urine 4 /hpf (0-5)
[2025-02-07 10:35] LABS: Basophils # (Auto) 0.1 Thou/mm3 (0.0-0.2); Basophils % (Auto) 0 % (0-2.5); Eosinophils # (Auto) 0.0 Thou/mm3 (0.0-0.5); Eosinophils % (Auto) 0 % (0-10); Hematocrit 42.2 % (36.0-46.0); Hemoglobin 15.2 g/dL (12.0-16.0); Immature Granulocytes Auto 0.10 Thou/mm3 (0.00-0.00); Lymphocytes # (Auto) 1.0 Thou/mm3 (1.0-4.8); Lymphocytes % (Auto) 6 % (10-50); Mean Corpuscular HGB Conc 36.0 g/dl (31.0-37.0); Mean Corpuscular Hemoglobin 30.6 pg (25.0-35.0); Mean Corpuscular Volume 85 fL (80-100); Monocytes # (Auto) 0.5 Thou/mm3 (0.0-0.8); Monocytes % (Auto) 3 % (0-12); Neutrophils # (Auto) 15.1 Thou/mm3 (1.8-7.7); Neutrophils % (Auto) 90 % (37-80); Nucleated Red Blood Cell # 0.00 Thou/mm3 (0.00-0.00); Nucleated Red Blood Cell % 0 /100 WBC (0); Platelet Count 274 Thou/mm3 (140-440); RDW Standard Deviation 34.7 fL (36.4-46.3); Red Blood Count 4.96 Miln/mm3 (4.00-5.20); White Blood Count 16.8 Thou/mm3 (3.6-11.0)
[2025-02-07 10:48] LABS: Alanine Aminotransferase 35 U/L (10-49); Albumin, Serum 4.4 gm/dL (3.5-5.0); Albumin/Globulin Ratio 1.4 (1.2-2.2); Alkaline Phosphatase 75 U/L (46-116); Anion Gap 9 (7-16); Aspartate Amino Transferase 22 U/L (0-34); BUN/Creatinine Ratio 18 Ratio (12-20); Bilirubin,Total 0.4 mg/dL (0.3-1.2); Blood Urea Nitrogen 14 mg/dL (9-23); Calcium 9.5 mg/dL (8.3-10.6); Calcium (Corrected) 9.5 mg/dL (8.5-10.1); Carbon Dioxide 24.1 mMol/L (20.0-31.0); Chloride 102 mMol/L (98-107); Creatinine (Component) 0.8 mg/dL (0.6-1.3); Estimated Creatinine Clearance 127.0 mL/min (>60); Globulin 3.1 gm/dL (2.3-3.5); Glucose 397 mg/dL (74-106); Lipase 31 U/L (12-53); Osmolality,Calculated 287 (275-295); Potassium 5.1 mMol/L (3.4-5.1); Sodium 135 mMol/L (136-145); Total Protein 7.5 gm/dL (5.7-8.2); eGFR > 60 See Note
--- NOTE | 2025-02-07 12:01 | PD.EDRME ---
Rapid Medical Screening Exam RME Arrival date/time: 02/07/25 08:10 35-year-old female with a history of hyperlipidemia, type 2 diabetes, presents to the emergency room with a chief complaint of bodyaches, chills, vomiting, right upper quadrant abdominal tenderness x 3 days I have greeted and performed a focused initial assessment of this patient. A comprehensive ED assessment and evaluation of the patient, analysis of all test results, and completion of the medical decision making process will be conducted by additional ED providers. Chief Complaint: Nausea/Vomiting/Diarrhea Time Seen by Provider: 02/07/25 08:17 Vital signs: Vital Signs Temperature 97.7 F 02/07/25 08:23 Pulse Rate 101 H 02/07/25 08:23 Respiratory Rate 18 02/07/25 08:23 Blood Pressure 159/82 H 02/07/25 08:23 Pulse Oximetry (%) 98 02/07/25 08:23 Oxygen Delivery Method Room Air 02/07/25 08:23 Vital signs reviewed by provider: Yes Exam: Right upper quadrant abdominal tenderness, epigastric abdominal tenderness with palpation Clear bilateral lung sounds Clinical Impression: Gastritis/gastroenteritis/abdominal pain
[2025-02-07] MEDS: SODIUM CHLORIDE 0.9% 1000 ML 1,000 ML 999 ML IV (13:55)
--- NOTE | 2025-02-07 14:44 | XR_ITS ---
Examination: CT abdomen with intravenous contrast CT pelvis with intravenous contrast 2-D coronal reconstructions 2-D sagittal reconstructions Date and time of exam: February 12, 2025, 1516 hours, comparison September 25, 2024 INDICATIONS: Right upper abdominal pain beginning 3 days ago. CTDI: vol (mGy) 17.1 DLP: (mGycm) 1037 Technique: Multiple axial sections of the abdomen and pelvis have been obtained. 64 slice high-resolution scanner used. 3 mm axial sections have been obtained, post intravenous injection 60 cc [id number] 2-D sagittal, coronal reconstructions obtained. Low dose protocols were performed. One or more of the following dose reduction techniques were used; automated exposure control, adjustment of the mA and/or KV according to patient size, use of iterative reconstruction technique. Findings: Diffuse fatty infiltration throughout the liver, hepatomegaly 22 cm No focal liver or splenic lesions Absent gallbladder, no common bile duct stones No pancreatic or adrenal mass Significant renal scar formation with minimal perinephric stranding No renal or ureteral calculi, no hydronephrosis Aorta normal size Normal appendix No bowel obstruction Scattered colonic diverticulosis, no diverticulitis Anteverted uterus, no uterine or adnexal mass No bladder mass Moderate to advanced degenerative disc disease L4-L5, L5-S1 IMPRESSION: Hepatomegaly, 22 cm with diffuse fatty infiltration throughout the liver Significant renal scar formation with minimal perinephric stranding, consider urinary tract infection Normal appendix No bowel obstruction Scattered colonic diverticulosis, no diverticulitis
--- NOTE | 2025-02-07 14:55 | PD.EDNV ---
Nausea/Vomit./Diarrhea-RME/HPI General Chief complaint: Nausea/Vomiting/Diarrhea Stated complaint: CHILLS, VOMITING, SKIN COLD Time Seen by Provider: 02/07/25 08:17 Arrival date/time: 02/07/25 08:10 RME / HPI RME / HPI Narrative: 02/07/25 08:10 35-year-old female with a history of hyperlipidemia, type 2 diabetes, presents to the emergency room with a chief complaint of bodyaches, chills, vomiting, right upper quadrant abdominal tenderness x 3 days I have greeted and performed a focused initial assessment of this patient. A comprehensive ED assessment and evaluation of the patient, analysis of all test results, and completion of the medical decision making process will be conducted by additional ED providers. DR. VEGA MAIN ED EVALUATION 35 year old female with history of diabetes and hyperlipidemia presents to the ED for evaluation of nausea, vomiting, chills, chest pressure, and right upper abdominal pain beginning yesterday. The abdominal pain is described as aching in sensation and rated as severe. Additionally complains of a sore throat and nonproductive cough, also beginning yesterday. Denies any fevers at home. Denies diarrhea, constipation, or change to urinary habits. Denies any sick contacts with similar symptoms. Patient mentioned her glucose at home is ranging 200-300s. Exam: Right upper quadrant abdominal tenderness, epigastric abdominal tenderness with palpation Clear bilateral lung sounds Impression: Gastritis/gastroenteritis/abdominal pain Related Data Home Medications ?Medication ?Instructions ?Recorded ?Confirmed dulaglutide 0.75 mg/0.5 mL 1 ea subcut QWEEK 08/17/21 08/20/21 subcutaneous pen injector (Trulicity) metformin 1,000 mg tablet 1,000 mg PO BID 08/17/21 08/20/21 atorvastatin 20 mg tablet 20 mg PO QPM 08/21/21 08/21/21 gabapentin 300 mg tablet 300 mg PO BID 08/21/21 08/21/21 insulin lispro 100 unit/mL 10 - 15 unit subcut TID 08/21/21 08/21/21 subcutaneous pen (Humalog KwikPen (U-100) Insulin) Previous Rx's ?Medication ?Instructions ?Recorded tizanidine 4 mg capsule 4 mg PO BID PRN muscle spasticity 01/23/23 #14 caps rizatriptan 10 mg disintegrating See Rx Instructions PO .COMPLEX 05/07/24 tablet (Maxalt-DRAGGER OUT) PRN migraine headache #20 tabs acetaminophen 300 mg-codeine 30 mg 2 tab PO Q8H PRN pain #20 tabs 12/04/24 tablet lidocaine 5 % topical patch 1 patch topical QDAY PRN pain #30 12/04/24 (Lidoderm) ea cephalexin 500 mg capsule 500 mg PO BID 5 days #10 caps 02/07/25 ketorolac 10 mg tablet 10 mg PO Q8H PRN pain 5 days #20 02/07/25 tabs prochlorperazine maleate 10 mg 10 mg PO Q8H PRN nausea and 02/07/25 tablet (Compazine) vomiting #20 tabs Allergies Allergy/AdvReac Type Severity Reaction Status Date / Time No Known Allergies Allergy Verified 02/07/25 08:13 Review of Systems Review of Systems Systems Reviewed: All systems reviewed, normal except as documented Past Medical History Past Medical History CARDIAC: Positive Hypercholesterolemia GASTROINTESTINAL: Positive Gastrointestinal Disorders and Gall Bladder Disease REPRODUCTIVE: Positive Previous Pregnancies ENDOCRINE: Positive Endocrine Disorders and Diabetes Mellitus Type 2 Family History FAMILY HISTORY: Positive Family Cardiac Disorders Surgical History SURGICAL: Positive Abdominal Surgery and Section Social History SMOKING STATUS: Never smoker SUBSTANCE USE: does not use ED Exam Narrative Physical exam: Constitutional: Awake, alert, nontoxic, no acute distress, obese HEENT: Normocephalic, atraumatic, extraocular movements intact. Neck: Supple CV: Regular rate and rhythm, no murmurs/rubs/gallops Lungs: Clear to auscultation BL, no respiratory distress. Abd: Soft, tenderenss to the right upper quadrant, no guarding,, no rebound, ND, no HSM noted to palpation Extremities: No deformities, no edema noted Neuro: AAOx3, CN 2-12 GIBL, no acute neuro deficit noted. Skin: Warm, dry, intact Course Quality Measures none Orders Category Date Time Status Bedside Blood Glucose NOW Care 02/07/25 16:47 Active Bedside COVID-19 Antigen Test NOW Care 02/07/25 08:25 Active Bedside Influenza A&B Antigen Test NOW Care 02/07/25 08:[address] Screening NOW Care 02/07/25 14:44 Active Insert IV NOW Care 02/07/25 10:[address] abdomen pelvis w con Stat Exams 02/07/25 14:44 Completed US gall bladder Stat Exams 02/07/25 08:24 Completed CBC Stat Lab 02/07/25 10:10 Completed CMP [Comprehensive Metabolic Panel] Stat Lab 02/07/25 10:10 Completed HCG Qualitative,Urine Stat Lab 02/07/25 09:05 Completed Lipase Stat Lab 02/07/25 10:10 Completed UA [Urinalysis] Stat Lab 02/07/25 09:05 Completed Urine Culture Stat Lab 02/07/25 09:05 Received Acetaminophen Ivpb [Ofirmev Inj] Med 02/07/25 14:44 Discontinued 1,000 mg in 100 ml IV NOW HYDROcodone*/APAP 5/325 [[place] 5/325] Med 02/07/25 08:25 Discontinued 1 tab PO X1 ONE Ketorolac Inj [Toradol Inj] Med 02/07/25 14:44 Discontinued 30 mg IVP X1 ONE Ondansetron Odt [Zofran Odt] Med 02/07/25 08:25 Discontinued 4 mg PO X1 ONE Prochlorperazine Inj [Compazine Inj] Med 02/07/25 16:47 Once 10 mg IV X1 ONE Sodium Chloride 0.9% 1000 ml [Ns] 1,000 ml Med 02/07/25 10:58 Discontinued IV 999 mls/hr cefTRIAXone/D5w 1gm IV premix [Rocephin/D5w 1gm IV Med 02/07/25 16:46 Ordered premix] 1 gm in 50 ml IV X1 traMADol HCL [Ultram] Med 02/07/25 16:46 Once 50 mg PO X1 ONE Vital Signs Vital signs: Vital Signs Temperature 97.7 F 02/07/25 08:23 Pulse Rate 101 H 02/07/25 08:23 Respiratory Rate 18 02/07/25 08:23 Blood Pressure 159/82 H 02/07/25 08:23 Pulse Oximetry (%) 98 02/07/25 08:23 Oxygen Delivery Method Room Air 02/07/25 08:23 Nausea/Vomiting/Diarrhea MDM Narrative MDM Narrative:: 35-year-old female coming in for evaluation of right flank pain in addition to nausea, vomiting that she has been having. Ultrasound, CT, labs ordered for further evaluation. Ultrasound appears negative for acute abnormalities. CT shows mild right sided perinephric stranding. Urinalysis shows positive nitrites and rare bacteria. Does have leukocytosis with a white count of 16.8 and elevated glucose at 397. Notes that her baseline blood sugars at home are usually between 2 and 300. Does take insulin at home. Given dose of antibiotic here as well as pain medication and antiemetics. Will give prescriptions for home. Stable for discharge. Return precautions advised. Jennifer Stover, am scribing for and in the presence of Dr. Vega. Patient data External records reviewed:: [facility] previous records Clinical information provided by:: patient Social determinants that could affect healthcare access:: none Patient has the following chronic illnesses:: DM, HLD How is presenting disease/condition affected by chronic disease/condition?: exacerbated by Evaluation data The following diagnostics were reviewed and interpreted by me:: lab results Lab and/or radiology exams considered but not ordered:: None Interpretation Summary: Ordering Physician: Tommy Leon Date of Service: 02/07/25 Procedure(s): US gall bladder Accession Number(s): [id number] cc: Tommy Leon; Maddison Funez PIPE WASHER; Kali Reis MD~ Examination: Abdomen sonogram, Limited Date and time of exam: February 07, 2025, 0900 hours INDICATIONS: Right upper abdominal pain vomiting and chills beginning 2 days ago Technique: Real-time nunez scale transabdominal sonographic images of the upper abdomen obtained. Findings: Absent gallbladder Common bile duct 0.4 cm Pancreatic head 2.3 cm Liver 19.1 cm fatty infiltration smooth contour Normal hepatopetal portal venous flow Patent IVC IMPRESSION: Absent gallbladder Normal common bile duct. Moderate hepatomegaly no focal liver lesions Dictated By: Kali Reis MD Signed By: <Electronically signed by Kali Reis MD in [place]> 02/07/25 0954 Ordering Physician: Rubi Vega MD Date of Service: 02/07/25 Procedure(s): CT abdomen pelvis w con Accession Number(s): [id number] cc: Maddison Funez PIPE WASHER; Kali Reis MD; Rubi Vega MD~ Examination: CT abdomen with intravenous contrast CT pelvis with intravenous contrast 2-D coronal reconstructions 2-D sagittal reconstructions Date and time of exam: February 12, 2025, 1516 hours, comparison September 25, 2024 INDICATIONS: Right upper abdominal pain beginning 3 days ago. CTDI: vol (mGy) 17.1 DLP: (mGycm) 1037 Technique: Multiple axial sections of the abdomen and pelvis have been obtained. 64 slice high-resolution scanner used. 3 mm axial sections have been obtained, post intravenous injection 60 cc [id number] 2-D sagittal, coronal reconstructions obtained. Low dose protocols were performed. One or more of the following dose reduction techniques were used; automated exposure control, adjustment of the mA and/or KV according to patient size, use of iterative reconstruction technique. Findings: Diffuse fatty infiltration throughout the liver, hepatomegaly 22 cm No focal liver or splenic lesions Absent gallbladder, no common bile duct stones No pancreatic or adrenal mass Significant renal scar formation with minimal perinephric stranding No renal or ureteral calculi, no hydronephrosis Aorta normal size Normal appendix No bowel obstruction Scattered colonic diverticulosis, no diverticulitis Anteverted uterus, no uterine or adnexal mass No bladder mass Moderate to advanced degenerative disc disease L4-L5, L5-S1 IMPRESSION: Hepatomegaly, 22 cm with diffuse fatty infiltration throughout the liver Significant renal scar formation with minimal perinephric stranding, consider urinary tract infection Normal appendix No bowel obstruction Scattered colonic diverticulosis, no diverticulitis Dictated By: Kali Reis MD Signed By: <Electronically signed by Kali Reis MD in [place]> 02/07/25 1542 Medications / Prescriptions Medications / Prescriptions considered but not ordered:: None Medication administrations:: Medication Administration History Ceftriaxone Sodium/Dextrose (Rocephin/D5w 1gm Iv Premix) 1 gm in 50 mls @ 100 mls/hr IV X1 ONE Stop: 02/07/25 17:15 Discontinued Medications Hydrocodone Bitart/Acetaminophen (Hydrocodone/Apap 5/325 Tablet) 1 tab PO X1 ONE Stop: 02/07/25 08:26 Last Admin: 02/07/25 08:42 Dose: 1 tab Documented By: ARF Sodium Chloride (Ns) 1,000 mls @ 999 mls/hr IV .Q1H1M ONE Stop: 02/07/25 11:58 Last Infusion: 02/07/25 15:00 Dose: Infused Documented By: Admin: 02/07/25 13:55 Dose: 999 mls/hr Documented By: ADAM Acetaminophen (Ofirmev Inj) 1,000 mg in 100 mls @ 250 mls/hr IV NOW ONE Stop: 02/07/25 15:07 Last Admin: 02/07/25 15:44 Dose: 250 mls/hr Documented By: ROSA ISELA Ketorolac Tromethamine (Ketorolac Inj 30 Mg/Ml Vial) 30 mg IVP X1 ONE Stop: 02/07/25 14:45 Last Admin: 02/07/25 15:09 Dose: 30 mg Documented By: LF Ondansetron HCl (Ondansetron Odt 4 Mg Tabrap) 4 mg PO X1 ONE; Protocol Stop: 02/07/25 08:26 Last Admin: 02/07/25 08:42 Dose: 4 mg Documented By: ARF Prochlorperazine Edisylate (Prochlorperazine Inj 5 Mg/Ml Vial 2 Ml) 10 mg IV X1 ONE; Protocol Stop: 02/07/25 16:48 Tramadol HCl (Tramadol Hcl 50 Mg Tablet) 50 mg PO X1 ONE Stop: 02/07/25 16:47 See above Consultations Consultation(s) initiated? (list below): No Diagnosis Nausea Differential Diagnosis: gastroenteritis, drug-induced nausea and vomiting, dehydration and other Most likely diagnosis given after review of the tests above:: urinary tract infection Admission Indicated Admission indicated?: not indicated Admission Request Was there a request for admission?: No Disposition Plan Disposition Plan: Discharge Discharge Attestation Discharge Attestation: The patient and all family members were given an opportunity to ask questions and understood the discharge instructions. Discharge instructions specifically effects, indications for sooner follow up or return to the emergency department, and the expected course of current diagnosis. Patient condition: Stable Discharge Plan Plan Patient Disposition: HOME (Self Care) Patient condition on transfer: Stable Prescriptions/Referrals Prescriptions/Med Rec: New cephalexin 500 mg capsule 500 mg PO BID 5 Days Qty: 10 0RF ketorolac 10 mg tablet 10 mg PO Q8H PRN (Reason: pain) 5 Days Qty: 20 0RF Rx Instructions: maximum total duration of 5 days from all oral, intranasal, or parenteral formulations prochlorperazine maleate [Compazine] 10 mg tablet 10 mg PO Q8H PRN (Reason: nausea and vomiting) Qty: 20 0RF Discontinued cephalexin 500 mg capsule 500 mg PO QID Qty: 28 0RF cefuroxime axetil 500 mg tablet 500 mg PO BID Qty: 14 0RF ibuprofen 800 mg tablet 800 mg PO Q8H PRN (Reason: pain) Qty: 30 0RF amoxicillin-pot clavulanate 875-125 mg tablet 1 tab PO BID Qty: 20 0RF ibuprofen 800 mg tablet 800 mg PO TID PRN (Reason: pain) Qty: 30 0RF ibuprofen 800 mg tablet 800 mg PO TID PRN (Reason: pain) Qty: 30 0RF cephalexin 500 mg tablet 500 mg PO TID Qty: 21 0RF cefuroxime axetil 500 mg tablet 500 mg PO BID Qty: 14 0RF ibuprofen 800 mg tablet 800 mg PO Q8H PRN (Reason: pain) Qty: 20 0RF No Action metformin 1,000 mg Tablet 1,000 mg PO BID Trulicity 0.75 mg/0.5 mL pen injector 1 ea SUBCUT QWEEK Patient Comments: INJECT 1 PEN SUBCUTANEOUSLY ONCE A WEEK atorvastatin 20 mg Tablet 20 mg PO QPM insulin lispro [Humalog KwikPen Insulin] 100 unit/mL Insulin Pen 10 - 15 unit SUBCUT TID Rx Instructions: before meals gabapentin 300 mg Tablet 300 mg PO BID Rx Instructions: for 30 days rizatriptan [Maxalt-DRAGGER OUT] 10 mg tablet,disintegrating See Rx Instructions .ROUTE .COMPLEX PRN (Reason: migraine headache) Qty: 20 0RF Rx Instructions: take 1 tab at onset of headache; if no relief may repeat 1 tab after at least 2 hrs; max = 3 tabs/24 hr PRN; acetaminophen-codeine 300-30 mg tablet 2 tab PO Q8H MDD 6 PRN (Reason: pain) Qty: 20 0RF lidocaine [Lidoderm] 5 % adhesive patch,medicated 1 patch topical QDAY PRN (Reason: pain) Qty: 30 0RF Rx Instructions: leave on most painful area for up to 12 hrs tizanidine 4 mg capsule 4 mg PO BID PRN (Reason: muscle spasticity) Qty: 14 0RF Referrals: Maddison Funez, PIPE WASHER [Primary Care Provider] - In 1 week Problem List Clinical Impression: UTI (urinary tract infection) Patient/Caregiver Discharge Instructions Education Materials: ED CYSTITIS Female Adult Additional Instructions: Some general health principles that can help you are the [employer] [place] principles: Nutrition (eat a plant-based diet, avoiding meats in general, avoiding highly processed foods) Exercise (Daily exercise/walks as tolerated) Water (Drink adequate fresh water to maintain hydration, concentrating on water rather than on soda, coffee, tea, juice, etc for hydration) [place] (Spend time - 15-20 minutes or so with skin exposed in the property technician and late evening sun for Vitamin D health benefits) [place] (Avoid alcohol, illicit drugs, caffeinated beverages, smoking, etc) Air (Deep breathing exercises in the early mornings in fresh air) Rest (Adequate rest at night, going to bed a few hours before midnight and avoiding all screens/television/loud music in the time right before going to bed, also avoiding heavy meals just prior to going to bed) Trust in God (Spend time daily in Bible study and prayer - health benefits in contemplation of God's true character) Additional resources that can benefit: www.[employer], look under resources and seminars. Another good website is www.[employer].org Print Language: [place] Stand Alone Forms: Marisa Award Info., Patient Portal Info Letter
[2025-02-07] MEDS: KETOROLAC INJ 30 MG/ML VIAL IVP (15:09)
[2025-02-07] MEDS: ACETAMINOPHEN IVPB 1,000 MG/100 ML VIAL 250 MG IV (15:44)
[2025-02-07 15:52] VITALS: BP 146/91; PULSE 95; RESP 18; TEMP 36.8; O2SAT 99
[2025-02-07] MEDS: cefTRIAXone/D5w 1gm IV premix 1 GM/50 ML BAG IV (17:37)
[2025-02-07] MEDS: PROCHLORPERAZINE INJ 5 MG/ML VIAL 2 ML 10 MG IV (17:45)
== END 2025-02-07 18:11 | disposition home or self-care (01) ==
PROVIDERS: Nurse Practitioner Family; Emergency Provider Family Medicine; PCP Nurse Practitioner Women's Health
DX: N39.0 Urinary tract infection, site not specified (principal); K76.0 Fatty (change of) liver, not elsewhere classified; N28.89 Other specified disorders of kidney and ureter; K57.90 Diverticulosis of intestine, part unspecified, without perforation or abscess without bleeding; E11.9 Type 2 diabetes mellitus without complications; E78.5 Hyperlipidemia, unspecified; Z79.4 Long term (current) use of insulin
CPT/HCPCS: 36415; 74177; 76705; 80053; 81001; 81025; 83690; 85025; 87077; 87086; 87186; 87502; 87635; 96361; 96365; 96375; 99284; A4649; J0131; J0696; J0780; J1885; J7030; Q0162; Q9967; A9270